=== PATIENT | female | born 1990 | race Two or more races ===

== ENCOUNTER 2018-02-13 18:43 | Emergency (ER) | payer OTHER ==
[2018-02-13 19:01] VITALS: BP 133/75; PULSE 80; TEMP 99; BMI 24.6
[2018-02-13] MEDS ORDERED: CYCLOBENZAPRINE HCL 10 MG TABLET (FP) PO ONE (19:26)
[2018-02-13] MEDS ORDERED: KETOROLAC TROMETHAMINE 60 MG/2 ML VIAL ONE (19:27)
[2018-02-13] MEDS ORDERED: KETOROLAC TROMETHAMINE 60 MG/2 ML VIAL IM ONE (19:27)
[2018-02-13] MEDS ORDERED: CYCLOBENZAPRINE HCL 10 MG TABLET (FP) ONE (19:28)
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
== END 2018-02-13 20:00 | disposition home or self-care (01) ==
LOC: JERFT 18:43
PROC: 3E0233Z Introduction of Anti-inflammatory into Muscle, Percutaneous Approach (ICD-10-PCS; principal; 2018-02-13)
DX: S29.012A Strain of muscle and tendon of back wall of thorax, initial encounter (principal); V43.52XA Car driver injured in collision with other type car in traffic accident, initial encounter; Y93.89 Activity, other specified; Y92.410 Unspecified street and highway as the place of occurrence of the external cause
CPT/HCPCS: 99281-25